=== PATIENT | female | born 1945 | race Caucasian/White ===

== ENCOUNTER 2019-08-09 13:39 | Emergency (ER) | payer MEDICARE ==
[~2019-08-09] VITALS: Ht 167.6 cm; Wt 106.6 kg
[2019-08-09] MEDS ORDERED: HYDROCODONE/APAP 5-325MG TABLET PO ONE (14:15)
[2019-08-09] MEDS ORDERED: HYDROCODONE/APAP 5-325MG TABLET ONE (14:25)
[2019-08-09] MEDS ORDERED: IBUPROFEN 600 MG TABLET ONE (14:29)
[2019-08-09 15:11] VITALS: BP 154/89
[2019-08-11] MEDS ORDERED: IBUPROFEN 600 MG TABLET PO ONE (18:15)
== END 2019-08-09 15:14 | disposition home or self-care (01) ==
LOC: ER 13:39
DX: H60.92 Unspecified otitis externa, left ear (principal); E11.9 Type 2 diabetes mellitus without complications
CPT/HCPCS: A4663